=== PATIENT | male | born 1985 | race Hispanic/Latino ===

== ENCOUNTER 2024-09-13 11:17 | Emergency (ER) | payer OTHER ==
[~2024-09-13] VITALS: Ht 177.8 cm; Wt 108.9 kg
[2024-09-13 11:25] VITALS: PULSE 72; RESP 20; TEMP 97.8
[2024-09-13] MEDS: SODIUM CHLORIDE 0.9% 1000ML 1,000 ML IV STA (12:10)
[2024-09-13] MEDS: ONDANSETRON HCL INJ 2MG/ML 2ML 2 MG/ML VIAL IV STA (12:11)
[2024-09-13] MEDS: KETOROLAC TROMETHAMINE 30 MG/ML VIAL IV STA (12:11)
[2024-09-13 12:16] LABS: BASOPHILS % 0.3 % (0.0-1.0); EOSINOPHILS % 0.2 % (0.0-6.0); HEMATOCRIT 47.5 % (38.2-49.6); HEMOGLOBIN 16.3 g/dL (14.0-18.0); LYMPHOCYTES # (AUTO) 1.5 (1.0-3.2); LYMPHOCYTES % 25.5 % (18.0-39.1); MEAN CORPUSCULAR HEMOGLOBIN 29.1 pg (28-32); MEAN CORPUSCULAR HGB CONC 34.3 g/dL (31-35); MEAN CORPUSCULAR VOLUME 84.8 fL (81-99); MONOCYTES # (AUTO) 0.4 (0.2-0.8); MONOCYTES % 7.3 % (4.4-11.3); NEUTROPHILS % 66.5 % (38.7-80.0); PLATELET COUNT 189 x10e3/uL (140-360); RED CELL DISTRIBUTION WIDTH 12.5 % (11.7-14.4); WHITE BLOOD COUNT 6.03 x10e3/uL (4.8-10.8)
[2024-09-13 12:17] LABS: INR 1.07; PARTIAL THROMBOPLASTIN TIME 26.6 seconds (23.8-35.5); PROTHROMBIN TIME 14.5 seconds (11.9-14.5)
[2024-09-13 12:27] LABS: ALBUMIN 3.8 g/dL (3.5-5.0); ALBUMIN/GLOBULIN RATIO 0.8 (0.8-2.0); ANION GAP 17.9 mmol/L (8-16); BILIRUBIN,TOTAL 1.8 mg/dL (0.2-1.2); CALCIUM 10.1 mg/dL (8.4-10.2); CREATININE, SERUM 0.76 mg/dL (0.72-1.25); POTASSIUM 3.9 mmol/L (3.5-5.1); TOTAL PROTEIN 8.4 g/dL (6.5-8.1)
[2024-09-13 12:33] LABS: TROPONIN I 0.004 ng/mL (0-0.300)
[2024-09-13 13:20] LABS: CLARITY,URINE TURBID (CLEAR); COLOR,URINE RED (YELLOW)
[2024-09-13 13:21] LABS: BILIRUBIN,URINE LARGE (NEGATIVE); GLUCOSE, URINE 1+ (NEGATIVE); KETONES,URINE >=160 (NEGATIVE); LEUKOCYTE ESTERASE ,URINE LARGE (NEGATIVE); NITRITE,URINE POSITIVE (NEGATIVE); PH,URINE >=9 (5 - 7); PROTEIN,URINE DIPSTICK >=300 (NEGATIVE)
[2024-09-13 13:31] LABS: BACTERIA,URINE MANY /HPF; EPITHELIAL CELLS,URINE FEW /LPF; RBC,URINE >50 /HPF (0-5)
[2024-09-13] MEDS ORDERED: PROMETHAZINE12.5 MG PR (15:08)
[2024-09-13] MEDS ORDERED: CEFDINIR300 MG PO (15:08)
[2024-09-13] MEDS ORDERED: HYDROCODON-ACE1 EA11 PO (15:08)
[2024-09-13] MEDS ORDERED: ONDANSETRON ODT4 MG PO (15:08)
[2024-09-13 15:44] VITALS: BP 144/99; PULSE 81; RESP 16; O2SAT 100
== END 2024-09-13 15:46 | disposition home or self-care (01) ==
LOC: ER 11:44
DX: R10.13 Epigastric pain (principal); N39.0 Urinary tract infection, site not specified; N20.0 Calculus of kidney; R11.0 Nausea
CPT/HCPCS: 36415; 74176; 80053; 81001; 82550; 83690; 84484; 85025; 85610; 85730; 87086; 93005; 99284; J1885; J2405; J2470; J7030